=== PATIENT | female | born 1945 | race Caucasian/White ===

== ENCOUNTER → 2019-04-01 | Outpatient (CLI) | payer MEDICARE ==
[~2019-04-01] MED LIST: BENAZEPRIL-HCT1 EAC1; LOSARTAN POTASS25 MG
--- NOTE | 2019-04-01 17:32 | Diagnostic Imaging Report ---
PROCEDURE: Ultrasound-guided biopsy Procedural Personnel Attending physician(s): Laura Meade MD Fellow physician(s): None Resident physician(s): None Advanced practice provider(s): None Pre-procedure diagnosis: Left facial mass, superior parotid mass Post-procedure diagnosis: Same Indication: Mass of left face, superior aspect of parotid gland Previous biopsy of same target (QCDR): No Additional clinical history: None Complications: No immediate complications. IMPRESSION: Ultrasound-guided biopsy of left superior parotid mass. Plan: Specimen(s) sent for evaluation. PROCEDURE SUMMARY: - Percutaneous US-guided core needle and fine needle aspiration biopsy biopsy - Additional procedure(s): None PROCEDURE DETAILS: Pre-procedure Reference imaging for biopsy target: Outside MRI Consent: Informed consent for the procedure including risks, benefits and alternatives was obtained and time-out was performed prior to the procedure. Preparation: The site was prepared and draped using maximal sterile barrier technique including cutaneous antisepsis. Anesthesia/sedation Level of anesthesia/sedation: No sedation Imaging prior to biopsy The patient was positioned supine. Initial ultrasound was performed. Biopsy target: - Maximal diameter (cm): 2 - Location: Left superior parotid Other findings: None Biopsy Local anesthesia was administered. Under US guidance, the biopsy needle was advanced to the target and biopsy was performed. Coaxial needle: None Core needle biopsy device: Temno Evolution Core needle size: 18 gauge Number of core specimens: 2 Fine needle aspiration device: Chiba 22g Fine needle size: 22 gauge 9cm Number of FNA specimens: 3 On-site biopsy touch preparation: Yes Additional sampling recommendations: After review of the fine needle sample, the pathologist requested core biopsies for further and complete evaluation. Preliminary assessment of sample adequacy: Adequacy not confirmed Needle removal The biopsy needle was removed and a sterile dressing was applied. Tract embolization: None Imaging following biopsy Immediate post-biopsy ultrasound was performed. Post-biopsy imaging findings: No hematoma Additional Details Additional description of procedure: None Equipment details: None Specimens removed: Biopsy samples as detailed above Estimated blood loss (mL): Less than 10 Standardized report: [id number] Attestation Signer name: Laura Meade MD I attest that I was present for the entire procedure. I reviewed the stored images and agree with the report as written. Signed by: Laura Meade MD on 04/01/2019 5:29 PM
== END ==
LOC: US 10:22
PROVIDERS: ATTEND Otolaryngology
DX: K11.8 Other diseases of salivary glands (principal)
CPT/HCPCS: 10005; 88172; 88173; 88305

== ENCOUNTER → 2019-05-06 | Day surgery (SDC) | payer MEDICARE ==
[2019-05-02 09:31] LABS: BASOPHILS # (AUTO) 0.1 (0.0-0.1); BASOPHILS % 0.7 % (0.0-1.0); EOSINOPHILS # (AUTO) 0.1 (0.0-0.4); HEMATOCRIT 40.9 % (34.2-44.1); HEMOGLOBIN 13.5 g/dL (12.0-16.0); LYMPHOCYTES # (AUTO) 2.2 (1.0-3.2); LYMPHOCYTES % 25.4 % (18.0-39.1); MEAN CORPUSCULAR VOLUME 87.8 fL (81-99); MONOCYTES # (AUTO) 1.2 (0.2-0.8); MONOCYTES % 13.2 % (4.4-11.3); NEUTROPHILS # (AUTO) 5.2 (2.1-6.9); NEUTROPHILS % 59.4 % (38.7-80.0); PLATELET COUNT 212 x10e3/uL (140-360); RED BLOOD COUNT 4.66 x10e6/uL (3.6-5.1); RED CELL DISTRIBUTION WIDTH 13.6 % (11.7-14.4)
--- NOTE | 2019-05-02 10:24 | Diagnostic Imaging Report ---
Chest, 2 views, 05/02/2019. History: Preop, ENT surgery. Comparison: None available. Findings: The cardiomediastinal silhouette and pulmonary vasculature are within normal limits. The lungs are clear without evidence of consolidation or pleural effusion. Retrocardiac rounded density with air-fluid level is noted. There are no acute osseous or soft tissue abnormalities. Impression: No acute cardiopulmonary abnormality. Hiatal hernia is noted. Signed by: Gregg Navarrete on 05/02/2019 10:21 AM
[~2019-05-06] MED LIST changes: +ACETAMINOPHEN 1000 MG/100 ML IV ONE; +ASPIR 8181 MG PO; +CEFAZOLIN SOD 1 GM VIAL ONE; +DEXAMETHASONE SOD PHOS INJ 4 MG/ML VIAL ONE; +DIVALPROEX SOD500 MG PO; +EFFEXOR XR 3737.5 MG PO; +EPINEPHRINE HCL 1:1000 1ML 1 MG/ML AMP ONE; +EYE LUBRICANT OPTH OINT 3.5GM TUBE OP ONE; +FENTANYL CITRATE/PF 100MCG/2 ML INJ ONE; +GLYCOPYRROLATE INJ 1MG/ 5 ML SYR ONE; +IBUPROFEN 800MG/ 250ML 250 ML IV ONE; +LIDOCAINE HCL 2% LOCAL INJ 5 ML SDV VIAL INJ ONE; +LOSARTAN POTAS100 MG PO; +MIDAZOLAM HCL 2 MG/2 ML VIAL ONE; +MORPHINE SULFATE 2 MG/ML SYR 1ML ONE; +NEOSTIGMINE 5 MG/5ML SYR ONE; +ONDANSETRON HCL INJ 2MG/ML 2ML 2 MG/ML VIAL ONE; +POTASSIUM PO; +PRAVASTATIN SOD20 MG PO; +PROPOFOL IV EMULSION 10 MG/ML 20 ML VIAL ONE; +ROCURONIUM BROMIDE 10 MG/ML 5ML VIAL ONE; +SEVOFLURANE INHAL SOLN 250 ML PEN BTL ONE; +SODIUM CHLORIDE 0.9% 50ML 0 ML ONE; +SODIUM CHLORIDE 0.9% INJ 10 ML VIAL ONE; +SUCCINYLCHOLINE 200 MG/10 ML SYR ONE; +TYLENOL PO; +VIT D3 PO
--- OUTSIDE RECORDS SUMMARY | 2019-05-06 05:32 | XMS REPORT ---
Author Author [facility] Address Unknown Phone Unavailable Care Team Providers Care Professional Services Specialist Name Role Phone JOSSIE HUTCHISON Unavailable Unavailable Problems This patient has no known problems. Allergies, Adverse Reactions, Alerts This patient has no known allergies or adverse reactions. Medications This patient has no known medications. Results Test Description Test Time Test Comments Text Results Atomic Results Result Comments CHEST 2 VIEWS 2019-05-02 10:19:00 [place] [id number] Patient Name: MIKA ASHLEY MR #: [id number] : 1945 Age/Sex: 73/F Req #: [id number] Adm Physician: Ordered by: KIANNA AGUAYO, JOSSIE AGUAYO Report #: [id number] Location: OR Room/Bed: Procedure: [id number] DX/CHEST 2 VIEWS Exam Date: 05/02/19 Exam Time: 0920 REPORT STATUS: Signed Chest, 2 views, 05/02/2019. History: Preop, ENT surgery. Comparison: None available. Findings: The cardiomediastinal silhouette and pulmonary vasculature are within normal limits. The lungs are clear without evidence of consolidation or pleural effusion. Retrocardiac rounded density with air-fluid level is noted. There are no acute osseous or soft tissue abnormalities. Impression: No acute cardiopulmonary abnormality. Hiatal hernia is noted. Signed by: Gregg Navarrete on 05/02/2019 10:21 AM Dictated By: GREGG NAVARRETE MD 1021 Transcribed By: KT on 05/02/19 1021 COPY TO: JOSSIE HUTCHISON FNA US GUIDED 1ST LESION 2019-04-01 17:27:00 [place] [address] Patient Name: MIKA ASHLEY MR #: [id number] : 1945 Age/Sex: 73/F Req #: [id number] Adm Physician: Ordered by: JOSSIE HUTCHISON MD, MD Report #: [id number] Location: Room/Bed: Procedure: [id number] IR/FNA US GUIDED 1ST LESION Exam Date: 04/01/19 Exam Time: 1300 REPORT STATUS: Signed PROCEDURE: Ultrasound-guided biopsy Procedural Pe rsonnel Attending physician(s): Ondina Epstein MD Fellow physician(s): None Resident physician(s): None Advanced practice provider(s): None Pre- procedure diagnosis: Left facial mass, superior parotid mass Post-procedure diagnosis: Same Indication: Mass of left face, superior aspect of parotid gland Previous biopsy of same target (QCDR): No Additional clinical history: None Complications: No immediate complications. IMPRESSION: Ultrasound-guided biopsy of left superior parotid mass. Plan: Specimen(s) sent for evaluation. PROCEDURE SUMMARY: - Percutaneous US-guided core needle and fine needle aspiration biopsy biopsy - Additional procedure(s): None PROCEDURE DETAILS: Pre-procedure Reference imaging for biopsy target: Outside MRI Consent: Informed consent for the procedure including risks, benefits and alternatives was obtained and time-out was performed prior to the procedure. Preparation: The site was prepared and draped using maximal sterile barrier technique including cutaneous antisepsis. Anesthesia/sedation Level of anesthesia/sedation: No sedation Imaging prior to biopsy The patient was positioned supine. Initial ultrasound was performed. Biopsy target: - Maximal diameter (cm): 2 - Location: Left superior parotid Other findings: None Biopsy Local anesthesia was administered. Under US guidance, the biopsy needle was advanced to the target and biopsy was performed. Coaxial needle: None Core needle biopsy device: Flywheel Core needle size: 18 gauge Number of core specimens: 2 Fine needle aspiration device: Chiba 22g Fine needle size: 22 gauge 9cm Number of FNA specimens: 3 On-site biopsy touch preparation: Yes Additional sampling recommendations: After review of the fine needle sample, the pathologist requested core biopsies for further and complete evaluation. Preliminary assessment of sample adequacy: Adequacy not confirmed Needle removal The biopsy needle was removed and a sterile dressing was applied. Tract embolization: None Imaging following biopsy Immediate post-biopsy ultrasound was performed. Post-biopsy imaging findings: No hematoma Additional Details Additional description of procedure: None Equipment details: None Specimens removed: Biopsy samples as detailed above Estimated blood loss (mL): Less than 10 Standardized report: [email or web address] Attestation Signer name: Ondina Epstein MD I attest that I was present for the entire procedure. I reviewed the stored images and agree with the report as written. Signed by: Ondina Epstein MD on 04/01/2019 5:29 PM Dictated By: ONDINA EPSTEIN MD 28 Transcribed By: KT on 04/01/191728 COPY TO: JOSSIE HUTCHISON BREAST ULTRASOUND BILATERAL 2018-09-04 09:58:55 - BREAST ULTRASOUND BILATERALULTRASOUND OF BOTH BREASTS AND BOTH AXILLA: 09/04/2018CLINICAL: Supplemental Screening for Dense Breast. Comparison is made to exams dated 08/31/2017 ultrasound, 08/24/2016 ultrasound, and 02/24/2016 ultrasound - [facility]-. Real-time ultrasound of both breasts and both axilla was performed. No abnormalities were seen sonographically in the left breast or either axilla. There is a small simple cyst in the right breast at 12 o'clock 1 cm from the nipple.A benign- appearing circumscribed hypoechoic solid mass, 0.5 x 0.4 x 0.7 cm, is present in the 9 o'clock, right breast, 5 cm from the nipple, wider than deeper in contour and unassociated with abnormal shadowing or increased flow on color Doppler. 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 Accounting for technical differences, no definite significant interval change in its appearance is noted from the last exam of 08/31/2017. There is no sonographic evidence of malignancy. Resume annual screening mammography in one year. Jai Vega M.D. rb/:09/04/2018 09:58:55 Entry: samia Brandon 09/07/2018 14:06:28Imaging Technologist: Olga HONG, [facility]-FWletter sent: BIRADS 1-2 Combo FU Letter Ultrasound BI-RADS: 2 Benign SCR MAMM BILATERAL CARLA CAD DIGITAL 2018-09-04 09:21:39 - SCR MAMM BILATERAL CARLA CAD DIGITALBILATERAL DIGITAL SCREENING MAMMOGRAM 3D/2D WITH CAD: 09/04/2018CLINICAL: Asymptomatic. Digital breast tomosynthesis was performed in addition to routine CC and MLO views. Current mammographic images were evaluated by either a [employer] M-Vu or a [email or web address] ImageChecker CAD (computer aided detection system). Comparison is made to exams dated 08/31/2017 mammogram, 017 mammogram, and 08/26/2015 mammogram - [facility]-. There are scattered fibroglandular tissues in both breasts. There are benign calcifications and vascular calcification in both breasts. There also is a stable benign-appearing asymmetry and a benign intramammary node in the left breast. No suspicious new mass, architectural distortion, malignant type calcification, or lymph node abnormality detected. Breast architecture is stable compared to prior exams.IMPRESSION: BENIGNThere is no mammographic evidence of malignancy. Resume annual screening mammography in one year. Scheduled breast ultrasound to follow.Jai Vega M.D. rb/:09/04/2018 09:21:39 Entry: saima 09/07/2018 14:06:03Imaging Technologist: Claudia HONG, [facility]-FWMammogram BI-RADS: 2 Benign
[2019-05-06 10:00] VITALS: BP 148/63
--- NOTE | 2019-05-06 10:03 | Operative Report ---
DATE OF PROCEDURE: 05/06/2019 SURGEON: Bradley Sullivan MD PREOPERATIVE DIAGNOSIS: Left parotid gland mass. POSTOPERATIVE DIAGNOSIS: Left preauricular mass. PROCEDURE: Excision of left preauricular mass. SIGNIFICANT FINDINGS: Left preauricular mass diagnosed as benign lymph node with rim of normal salivary gland tissue on frozen section analysis. MAIN LINE STATION ENGINEER: Eliza Worrell. ANESTHESIA: General endotracheal tube anesthesia. SPECIMENS: Left preauricular mass. ESTIMATED BLOOD LOSS: 5 mL. COMPLICATIONS: None. INDICATIONS: The patient is a 73-year-old white female, found incidentally on MRI of the brain to have a 2.0 x 2.0 x 1.2 cm well-circumscribed mass in the superior left parotid gland in the preauricular area. Ultrasound-guided FNA biopsy and core biopsy of this mass performed on 04/01/2019 at the [facility] were nondiagnostic. On physical examination, there was some fullness and possibly an ill-defined mass, but no discrete mass was palpable on physical examination. She is scheduled for left superficial (possible total) parotidectomy with preservation of facial nerve with nerve integrity monitor (NIM) under general anesthesia. Risks and complications of the procedure were thoroughly discussed with the patient and include infection, bleeding, scarring, failure to improve, possibility of malignancy and need for additional operations, possibility of inability to find the mass, recurrence of mass, facial paralysis, sweating of the face when eating, collection of saliva deep to the skin flap(s) causing fistula and chronic drainage, poor cosmetic appearance of the surgical site, numbness of the left earlobe, need for blood transfusions, damage to surrounding nerves, blood vessels and muscles. She fully understands and gives consent. PROCEDURE IN DETAIL: The patient was taken to the operating room and placed supine on the operating table where general anesthesia was achieved through orotracheal intubation. The electrodes to be used for the nerve integrity monitor (NIM) were then inserted lateral to the left eye, lateral to the left oral commissure as well as a grounding electrodes in the chest. Injection with 9 mL of 1:100,000 epinephrine without lidocaine was injected into the planned left parotidectomy incision as well as the left parotidectomy anterior flap dissection area. The table was turned 90 degrees with the head towards the surgeon. Ancef antibiotics were administered intravenously. The left face was then prepped and draped in usual sterile fashion with a clear drape to allow full visualization of the left face for facial movement. The initial approach was a 4 cm vertical incision in the left preauricular area that is part of a normal parotidectomy incision that could be extended to a full parotidectomy incision in the event that parotidectomy would need to be performed. Further dissection then identified a rather superficial and ill-defined mass. This was then dissected around its periphery and was sent for frozen section analysis revealing a small lymph node with a rim of normal salivary gland tissue. Thorough palpation revealed no other masses in this area. Hemostasis was obtained judiciously. Following this, the incision was then repaired with interrupted 4-0 Monocryl in a subcuticular fashion followed by Dermabond. The patient was awakened in the operating room, extubated, and taken to the recovery room in good condition. Normal facial function was seen in the recovery room after patient awakened from anesthesia. MD YOLANDA Hartley/SANTINO /[id number] RICARDA
== END | disposition home or self-care (01) ==
LOC: OR 05:30
PROVIDERS: ATTEND Otolaryngology
DX: I89.8 Other specified noninfective disorders of lymphatic vessels and lymph nodes (principal); K11.8 Other diseases of salivary glands; I10 Essential (primary) hypertension; E78.00 Pure hypercholesterolemia, unspecified; E78.5 Hyperlipidemia, unspecified; F41.9 Anxiety disorder, unspecified; F32.9 Major depressive disorder, single episode, unspecified; Z01.810 Encounter for preprocedural cardiovascular examination; Z01.812 Encounter for preprocedural laboratory examination; Z01.818 Encounter for other preprocedural examination; Z79.82 Long term (current) use of aspirin
CPT/HCPCS: 36415; 38500; 71046; 85025; 88305; 88331; 93005; A4467; J0131; J0171; J0690; J1100; J2001; J2250; J2270; J2405; J2704; J3010; J3490; 88304